=== PATIENT | male | born 1985 | race Caucasian/White ===

== ENCOUNTER 2019-11-27 23:31 | Emergency (ER) | payer OTHER ==
[~2019-11-27] VITALS: Ht 180.3 cm; Wt 93.0 kg
[2019-11-27] MEDS ORDERED: PLEASE ENTER ALLERGIES MC SCH (23:45)
[2019-11-27] MEDS ORDERED: ZIPRASIDONE 20 MG INJ IM ONE (23:46)
--- NOTE | 2019-11-27 23:58 | NUR ---
rogelio. report received from [facility]. pt is si, denies hi. pt states "my cheated.i'm not suicidal, she is." pt is legal hold by rpd. pt's aox4. resps even and unlabored. pt is agitated and refused to take off pants. edmd/pa at bedside to evaluate at this time.
--- NOTE | 2019-11-27 23:58 | NUR ---
security called. all belongings put into one bag and put into the locker.
--- NOTE | 2019-11-27 23:59 | NUR ---
pt medicated per emar. pt tolerated well.
[2019-11-28] MEDS ORDERED: ZIPRASIDONE 20 MG INJ IM ONE
--- NOTE | 2019-11-28 00:08 | NUR ---
snacks and juice provided at this time.
[2019-11-28 00:14] LABS: ALANINE AMINOTRANSFERASE 92 U/L (12-78); ALBUMIN 4.4 g/dL (3.4-5.0); ANION GAP 9 mmol/L (5-15); CALCIUM 9.3 mg/dL (8.5-10.1); CHLORIDE 109 mmol/L (98-107); CREATININE 1.23 mg/dL (0.7-1.3)
[2019-11-28 00:17] LABS: ALKALINE PHOSPHATASE 118 U/L (45-117); BILIRUBIN,TOTAL 0.4 mg/dL (0.2-1.0); TOTAL PROTEIN 8.4 g/dL (6.4-8.2)
[2019-11-28 00:23] LABS: SALICYLATE LEVEL < 1.7 mg/dL (2.8-20.0)
--- NOTE | 2019-11-28 00:58 | NUR ---
report given to bethany silver.
--- NOTE | 2019-11-28 01:03 | NUR ---
Report received from HEELN Rubin. This RN to assume care.
--- NOTE | 2019-11-28 01:03 | NUR ---
Patient sleeping in rney. Respirations even and unlabored. Sitter outside, room secured, belongings locked in cabinet.
[2019-11-28 01:04] LABS: BASOPHILS # (AUTO) 0.05 x10^3/uL (0-0.1); BASOPHILS % (AUTO) 1 % (0-1); EOSINOPHILS # (AUTO) 0.19 x10^3/uL (0-0.4); EOSINOPHILS % (AUTO) 2 % (1-7); LYMPHOCYTES # (AUTO) 1.67 x10^3/uL (1-3.4); LYMPHOCYTES % (AUTO) 21 % (22-44); MD NO; MEAN CORPUSCULAR HEMOGLOBIN 30.3 pg (27.5-34.5); MEAN CORPUSCULAR HGB CONC 33.7 g/dL (33.2-36.2); MEAN CORPUSCULAR VOLUME 89.8 fL (81-97); MEAN PLATELET VOLUME 6.9 fL (7.4-10.4); MONOCYTES # (AUTO) 0.68 x10^3/uL (0.2-0.8); MONOCYTES % (AUTO) 8 % (2-9); NEUTROPHILS # (AUTO) 5.48 x10^3/uL (1.8-6.8); NEUTROPHILS % (AUTO) 68 % (42-75); PLATELET COUNT 283 x10^3/uL (130-400); RED BLOOD COUNT 5.08 x10^6/uL (4.38-5.82)
--- NOTE | 2019-11-28 02:30 | NUR ---
Patient sleeping in rney. Respirations even and unlabored. Sitter outside, room secured, belongings locked in cabinet.
--- NOTE | 2019-11-28 03:53 | NUR ---
Patient sleeping in rney. Respirations even and unlabored. Sitter outside, room secured, belongings locked in cabinet.
--- NOTE | 2019-11-28 04:43 | NUR ---
Patient sleeping in rney. Respirations even and unlabored. Sitter outside, room secured, belongings locked in cabinet.
--- NOTE | 2019-11-28 05:31 | NUR ---
Patient sleeping in rney. Respirations even and unlabored. Sitter outside, room secured, belongings locked in cabinet.
[2019-11-28] MEDS ORDERED: ACETAMINOPHEN 500 MG TABLET PO ONE (07:00)
[2019-11-28] MEDS ORDERED: KETOROLAC 30 MG/1 ML IM ONE (07:00)
--- NOTE | 2019-11-28 07:00 | NUR ---
Bedside report from Angelina RN With assessment patient awake/alert. Reports headache at 8/10 Denies SI/HI reports " is unstable, has history SI and cutting and was drinking as well so her report that he had a loaded gun in his mouth was her projecting."
[2019-11-28] MEDS ORDERED: KETOROLAC 30 MG/1 ML ONE (07:07)
[2019-11-28] MEDS ORDERED: ACETAMINOPHEN 500 MG TABLET ONE (07:07)
[2019-11-28] MEDS ORDERED: ONDANSETRON ODT 4 MG ONE (07:21)
[2019-11-28] MEDS ORDERED: ONDANSETRON ODT 4 MG PO ONE (07:30)
--- NOTE | 2019-11-28 07:30 | NUR ---
UDS sent Patient medicated per emar for nausea/headache Moved to hospital bed and provided with Breakfast
--- NOTE | 2019-11-28 08:00 | NUR ---
Repeat Breathalyzer obtained per order: 0.02
[2019-11-28 08:16] LABS: AMPHETAMINE SCREEN, URINE Negative (Negative); BARBITURATE SCREEN, URINE Negative (Negative); BENZODIAZEPINE SCREEN, URINE Negative (Negative); CANNABINOID SCREEN, URINE Positive (Negative); COCAINE SCREEN, URINE Positive (Negative); METHADONE SCREEN, URINE Negative (Negative); OPIATE SCREEN, URINE Negative (Negative)
--- NOTE | 2019-11-28 09:00 | NUR ---
With reassessment patient reports heachae and nausea "greatly improved." Updated on estimated poc Bedside report to HELEN Saenz
--- NOTE | 2019-11-28 09:06 | NUR ---
Received report and assumed patient care. Patient resting comfortably. Awaiting psychiatric evaluation
[2019-11-28 09:26] VITALS: BP 122/75
--- NOTE | 2019-11-28 09:51 | NUR ---
RN to bedside, removed finished tray, patient resting comfortably, provided x2 cups of water. Patient thankful. Awaiting evaluation by psychiatric provider.
--- NOTE | 2019-11-28 10:39 | NUR ---
CHART FAXED TO [facility].
--- NOTE | 2019-11-28 13:52 | NUR ---
RECEIVED REPORT FROM REGULO CERVANTES. ASSUMING CARE OF PT AT THIS TIME.
--- NOTE | 2019-11-28 14:05 | NUR ---
Gave report, reviewed patient's history and plan of care. Awaiting disposition
== END 2019-11-28 14:18 | disposition home or self-care (01) ==
LOC: ED 11-28 00:12
DX: T14.91XA Suicide attempt, initial encounter (principal); R25.8 Other abnormal involuntary movements; F11.129 Opioid abuse with intoxication, unspecified; F14.129 Cocaine abuse with intoxication, unspecified; R00.0 Tachycardia, unspecified; X58.XXXA Exposure to other specified factors, initial encounter; Y93.89 Activity, other specified; Y92.89 Other specified places as the place of occurrence of the external cause; Y99.8 Other external cause status
CPT/HCPCS: 36415; 80053; 80307; 85025; 96372; 99284; J3486